=== PATIENT | male | born 1940 | race Caucasian/White ===

== ENCOUNTER 2021-08-28 00:41 | Day surgery (SDC) | payer MEDICARE, SELFPAY ==
[2021-08-09 15:20] VITALS: BMI 28.2
[2021-08-28 08:44] VITALS: BP 137/60; PULSE 60; RESP 20; TEMP 36.1; O2SAT 98; BMI 27.5
[2021-08-28] MEDS: LACTATED RINGERS 1,000 ML 150 ML IV CONT (08:51)
[2021-08-28 08:54] LABS: Glucose Point of Care 119 mg/dl (65-105)
--- NOTE | 2021-08-28 09:11 | PM.HPGS ---
History of Present Illness History of Present Illness Consent: Risks, benefits, and alternatives have been discussed and questions answered. Patient agrees to proceed with procedure. Chief complaint: hx of colon polyps Narrative: Isidro Hendrix is a 81 year old male Referred for colon cancer screening. He has had multiple polyps removed in the past Review of Systems Review of Systems: All systems reviewed & are unremarkable except as noted in HPI and below PMFSH Social History Social History Smoking status: Never smoker Alcohol intake: current Alcohol use details: very little Substance use type: does not use Living arrangements: with family Spiritual care concerns: No Meds Home Medications and Allergies Home Medications Medication Instructions Recorded Confirmed Type aspirin 81 mg tablet,delayed 81 mg PO DAILY 08/09/21 08/09/21 History release atorvastatin 40 mg tablet 40 mg PO DAILY 08/09/21 08/09/21 History calcitriol 0.25 mcg capsule 0.25 mcg PO DAILY 08/09/21 08/09/21 History fluticasone propionate 0.05 % 1 applic topical BID PRN other 08/09/21 08/09/21 History topical cream geriatric multivitamin-min 1 tablet PO DAILY 08/09/21 08/09/21 History glucosamine sulf dipot 1 cap PO BID 08/09/21 08/09/21 History chlr,msm,chond 550 mg-C 30 mg-sarah 1 mg capsule (Glucosamine Chondroitin) halobetasol propionate 0.05 % 1 applic topical BID PRN other 08/09/21 08/09/21 History topical cream hydroxyzine HCl 25 mg tablet 25 mg PO DAILY 08/09/21 08/09/21 History ketoconazole 2 % topical cream 1 applic topical DAILY PRN other 08/09/21 08/09/21 History levetiracetam 500 mg tablet 500 mg PO BID 08/09/21 08/09/21 History levothyroxine 100 mcg tablet 100 mcg PO DAILY 08/09/21 08/09/21 History loratadine 10 mg tablet 10 mg PO DAILY 08/09/21 08/09/21 History losartan 50 mg tablet 50 mg PO DAILY 08/09/21 08/09/21 History lutein 20 mg-zeaxanthin 1,000 mcg 2 cap PO DAILY 08/09/21 08/09/21 History capsule metformin 500 mg tablet 500 mg PO BID 08/09/21 08/09/21 History methylcellulose (laxative) 500 mg 5 tablet PO DAILY 08/09/21 08/09/21 History tablet (Fiber Therapy (methylcellulose)) omega-3 fatty acids-fish oil 340 1 cap PO DAILY 08/09/21 08/09/21 History mg-1,000 mg capsule (Fish Oil) tamsulosin 0.4 mg capsule 0.4 mg PO DAILY 08/09/21 08/09/21 History Allergies Allergy/AdvReac Type Severity Reaction Status Date / Time No Known Allergies Allergy Verified 08/28/21 08:42 Vital Signs Vital Signs - 24 hr 08/28/21 08:44 Temperature 36.1 C L Pulse Rate 60 Respiratory Rate 20 Blood Pressure 137/60 Pulse Oximetry 98 Oxygen Delivery Room Air Exam Const: General: alert Orientation/consciousness: patient oriented x3 Resp: Auscultation: clear to auscultation bilaterally Cardio: Rhythm: regular rhythm GI: GI Palp: Yes Soft to palpation and No Tenderness to palpation present (GI) Neuro: General: patient oriented x3 Assessment and Plan Assessment and plan (1) Colon cancer screening: Code(s): Z12.11 - Encounter for screening for malignant neoplasm of colon Status: Acute Assessment and Plan: Colonoscopy with possible biopsy or polypectomy or cautery or injection of substances.
--- NOTE | 2021-08-28 09:37 | WPDANESEPPF ---
Anes - Initial Pre Proc Eval Procedure: Operation Date: 08/28/21 10:00 Proposed Procedures p Screening Colonoscopy - Ventura Vargas MD Date/Time: 08/28/21 09:37 Surgeon: Ventura Vargas MD Pre Op Diagnosis: hx of colon polyps Patient Data Age: 81 Gender: M Height: 1.65 m Weight: 75 kg Last Vital Signs Temp 96.9 F L 08/28/21 08:44 Pulse 60 08/28/21 08:44 Resp 20 08/28/21 08:44 BP 137/60 08/28/21 08:44 Pulse Ox 98 08/28/21 08:44 O2 Del Method Room Air 08/28/21 08:44 Allergies Allergy/AdvReac Type Severity Reaction Status Date / Time No Known Allergies Allergy Verified 08/28/21 08:42 Home Medications Medication Instructions Recorded Confirmed Type aspirin 81 mg tablet,delayed 81 mg PO DAILY 08/09/21 08/09/21 History release atorvastatin 40 mg tablet 40 mg PO DAILY 08/09/21 08/09/21 History calcitriol 0.25 mcg capsule 0.25 mcg PO DAILY 08/09/21 08/09/21 History fluticasone propionate 0.05 % 1 applic topical BID PRN other 08/09/21 08/09/21 History topical cream geriatric multivitamin-min 1 tablet PO DAILY 08/09/21 08/09/21 History glucosamine sulf dipot 1 cap PO BID 08/09/21 08/09/21 History chlr,msm,chond 550 mg-C 30 mg-sarah 1 mg capsule (Glucosamine Chondroitin) halobetasol propionate 0.05 % 1 applic topical BID PRN other 08/09/21 08/09/21 History topical cream hydroxyzine HCl 25 mg tablet 25 mg PO DAILY 08/09/21 08/09/21 History ketoconazole 2 % topical cream 1 applic topical DAILY PRN other 08/09/21 08/09/21 History levetiracetam 500 mg tablet 500 mg PO BID 08/09/21 08/09/21 History levothyroxine 100 mcg tablet 100 mcg PO DAILY 08/09/21 08/09/21 History loratadine 10 mg tablet 10 mg PO DAILY 08/09/21 08/09/21 History losartan 50 mg tablet 50 mg PO DAILY 08/09/21 08/09/21 History lutein 20 mg-zeaxanthin 1,000 mcg 2 cap PO DAILY 08/09/21 08/09/21 History capsule metformin 500 mg tablet 500 mg PO BID 08/09/21 08/09/21 History methylcellulose (laxative) 500 mg 5 tablet PO DAILY 08/09/21 08/09/21 History tablet (Fiber Therapy (methylcellulose)) omega-3 fatty acids-fish oil 340 1 cap PO DAILY 08/09/21 08/09/21 History mg-1,000 mg capsule (Fish Oil) tamsulosin 0.4 mg capsule 0.4 mg PO DAILY 08/09/21 08/09/21 History Laboratory Tests 08/28/21 08:49 POC Capillary Glucose 119 mg/dl H mg/dl (65-105) Patient hx anesthesia problems: none Family hx anesthesia problems: none Results Review: All pre-operative results and documents have been reviewed as part of the pre-operative evaluation. [facility] Social History Social History Smoking status: Never smoker Alcohol intake: current Alcohol use details: very little Substance use type: does not use Living arrangements: with family Spiritual care concerns: No Anes - Eval Final PreProcedure Day of Procedure 08/28/21 09:37 Patient weight: normal Heart: regular rate and rhythm Lungs: clear to auscultation Airway: Mallampati scale class II Neurological: alert and oriented Last oral intake: >/= 8 hours ASA classification: III Emergent: no Anesthetic plan: proceed Anesthesia type and monitoring: general GIVS and standard monitoring Results Review: All pre-operative results and documents have been reviewed as part of the pre-operative evaluation. Informed Consent: The patient's anesthetic plan and its attendant risks and benefits were discussed with the patient/family/POA. Questions were solicited and answers provided to the satisfaction of the patient/family/POA.
--- NOTE | 2021-08-28 09:38 | WPDANESEPPF ---
Anes - Initial Pre Proc Eval Procedure: Operation Date: 08/28/21 10:00 Proposed Procedures p Screening Colonoscopy - Ventura Vargas MD Date/Time: 08/28/21 09:38 Surgeon: Ventura Vargas MD Pre Op Diagnosis: hx of colon polyps Patient Data Age: 81 Gender: M Height: 1.65 m Weight: 75 kg Last Vital Signs Temp 96.9 F L 08/28/21 08:44 Pulse 60 08/28/21 08:44 Resp 20 08/28/21 08:44 BP 137/60 08/28/21 08:44 Pulse Ox 98 08/28/21 08:44 O2 Del Method Room Air 08/28/21 08:44 Allergies Allergy/AdvReac Type Severity Reaction Status Date / Time No Known Allergies Allergy Verified 08/28/21 08:42 Home Medications Medication Instructions Recorded Confirmed Type aspirin 81 mg tablet,delayed 81 mg PO DAILY 08/09/21 08/09/21 History release atorvastatin 40 mg tablet 40 mg PO DAILY 08/09/21 08/09/21 History calcitriol 0.25 mcg capsule 0.25 mcg PO DAILY 08/09/21 08/09/21 History fluticasone propionate 0.05 % 1 applic topical BID PRN other 08/09/21 08/09/21 History topical cream geriatric multivitamin-min 1 tablet PO DAILY 08/09/21 08/09/21 History glucosamine sulf dipot 1 cap PO BID 08/09/21 08/09/21 History chlr,msm,chond 550 mg-C 30 mg-sarah 1 mg capsule (Glucosamine Chondroitin) halobetasol propionate 0.05 % 1 applic topical BID PRN other 08/09/21 08/09/21 History topical cream hydroxyzine HCl 25 mg tablet 25 mg PO DAILY 08/09/21 08/09/21 History ketoconazole 2 % topical cream 1 applic topical DAILY PRN other 08/09/21 08/09/21 History levetiracetam 500 mg tablet 500 mg PO BID 08/09/21 08/09/21 History levothyroxine 100 mcg tablet 100 mcg PO DAILY 08/09/21 08/09/21 History loratadine 10 mg tablet 10 mg PO DAILY 08/09/21 08/09/21 History losartan 50 mg tablet 50 mg PO DAILY 08/09/21 08/09/21 History lutein 20 mg-zeaxanthin 1,000 mcg 2 cap PO DAILY 08/09/21 08/09/21 History capsule metformin 500 mg tablet 500 mg PO BID 08/09/21 08/09/21 History methylcellulose (laxative) 500 mg 5 tablet PO DAILY 08/09/21 08/09/21 History tablet (Fiber Therapy (methylcellulose)) omega-3 fatty acids-fish oil 340 1 cap PO DAILY 08/09/21 08/09/21 History mg-1,000 mg capsule (Fish Oil) tamsulosin 0.4 mg capsule 0.4 mg PO DAILY 08/09/21 08/09/21 History Laboratory Tests 08/28/21 08:49 POC Capillary Glucose 119 mg/dl H mg/dl (65-105) Patient hx anesthesia problems: none Family hx anesthesia problems: none Results Review: All pre-operative results and documents have been reviewed as part of the pre-operative evaluation. [facility] Social History Social History Smoking status: Never smoker Alcohol intake: current Alcohol use details: very little Substance use type: does not use Living arrangements: with family Spiritual care concerns: No Anes - Eval Final PreProcedure Day of Procedure 08/28/21 09:38 Results Review: All pre-operative results and documents have been reviewed as part of the pre-operative evaluation. Informed Consent: The patient's anesthetic plan and its attendant risks and benefits were discussed with the patient/family/POA. Questions were solicited and answers provided to the satisfaction of the patient/family/POA.
[2021-08-28 10:01] VITALS: BP 118/66; PULSE 60; RESP 16; O2SAT 98
[2021-08-28 10:11] VITALS: BP 122/76; PULSE 62; RESP 18; O2SAT 100
[2021-08-28 10:21] VITALS: BP 136/76; PULSE 60; RESP 18; O2SAT 100
== END 2021-08-28 10:31 | disposition home or self-care (01) ==
PROVIDERS: PCP Internal Medicine; Visit Provider Internal Medicine Gastroenterology
PROC: 0DJD8ZZ Inspection of Lower Intestinal Tract, Via Natural or Artificial Opening Endoscopic (ICD-10-PCS; CPT 45378; principal; 2021-08-28 10:00)
DX: Z12.11 Encounter for screening for malignant neoplasm of colon (principal); K57.30 Diverticulosis of large intestine without perforation or abscess without bleeding; K64.8 Other hemorrhoids; D12.2 Benign neoplasm of ascending colon; D12.3 Benign neoplasm of transverse colon; K63.5 Polyp of colon; Z79.82 Long term (current) use of aspirin; Z79.84 Long term (current) use of oral hypoglycemic drugs
CPT/HCPCS: 45385; 45380; 82948; 88305; J2704; J7120